=== PATIENT | male | born 1980 | race Native Hawaiian/Other Pacific Islander ===

== ENCOUNTER 2019-02-06 19:41 | Emergency (ER) | payer OTHER ==
[2019-02-06] MEDS ORDERED: BENZONATATE 100 MG CAP PO STA (20:13)
[2019-02-06] MEDS ORDERED: guaiFENesin-DM 600/30MG 1 EACH TAB.ER.12H PO STA (20:13)
[2019-02-06] MEDS ORDERED: IPRATROPIUM-ALBUTEROL 3 ML NEB INHALATION STA (20:13)
--- NOTE | 2019-02-06 20:36 | ED ---
General Adult HPI - General Chief complaint: Upper Respiratory Infection Stated complaint: Cough Time Seen by Provider: 02/06/19 19:55 Source: patient, family Mode of arrival: ambulatory Limitations: no limitations - History of Present Illness Initial comments: 38-year-old male patient presents to the emergency department today for evaluation of upper respiratory symptoms and cough. Patient is reporting nasal congestion, nasal drainage, and sore throat. States he has been coughing, reports clear sputum production. Patient states he has had a cough since November. States it seems to improve somewhat and then will get worse again. States his symptoms worsened again on Thursday. States he feels feverish but has not checked his temperature. Denies taking any medication for his symptoms. He does admit to smoking cigarettes. Several family members in the household are sick with similar symptoms. Patient denies any recent rash, abdominal pain, nausea, vomiting, diarrhea, constipation, back pain, numbness, tingling, dizziness, weakness, hematuria, dysuria, urinary urgency, urinary frequency, headache, visual changes, or any other complaints. - Related Data Previous Rx's Medication Instructions Recorded Albuterol Sulfate [Proair Hfa] 1 - 2 puff INHALATION Q6HR PRN #1 02/06/19 inhaler Benzonatate [Tessalon Perles] 100 mg PO TID #15 cap 02/06/19 guaiFENesin-DM 600/30MG [Mucinex 1 each PO Q12HR #10 tab.er.12h 02/06/19 Dm] methylPREDNISolone [Medrol Dose 4 mg PO DIRECTED #1 pack 02/06/19 Pack] Allergies Allergy/AdvReac Type Severity Reaction Status Date / Time No Known Allergies Allergy Verified 02/06/19 19:53 Review of Systems ROS Statement: Those systems with pertinent positive or pertinent negative responses have been documented in the HPI. ROS Other: All systems not noted in ROS Statement are negative. Past Medical History Past Medical History: No Reported History History of Any Multi-Drug Resistant Organisms: None Reported Past Surgical History: Cholecystectomy Past Psychological History: No Psychological Hx Reported Smoking Status: Current every day smoker Past Alcohol Use History: None Reported Past Drug Use History: None Reported General Exam Limitations: no limitations General appearance: alert, in no apparent distress, other (This is a well- developed, well-nourished adult male patient in no acute distress. Vital signs upon presentation are temperature 98.2, pulse 118, respirations 20, blood pressure 132/97, pulse ox 98% on room air.) Eye exam: Present: normal appearance, PERRL, EOMI. Absent: scleral icterus, conjunctival injection, periorbital swelling ENT exam: Present: mucous membranes moist. Absent: normal oropharynx ( Pharyngeal erythema) Respiratory exam: Present: normal lung sounds bilaterally. Absent: respiratory distress, wheezes, rales, rhonchi, stridor Cardiovascular Exam: Present: regular rate, normal rhythm, normal heart sounds. Absent: systolic murmur, diastolic murmur, rubs, gallop, clicks GI/Abdominal exam: Present: soft, normal bowel sounds. Absent: distended, tenderness, guarding, rebound, rigid Neurological exam: Present: alert, oriented X3, CN II-XII intact Psychiatric exam: Present: normal affect, normal mood Skin exam: Present: warm, dry, intact, normal color. Absent: rash Course Vital Signs 02/06/19 02/06/19 02/06/19 19:51 20:44 20:51 Temperature 98.2 F Pulse Rate 118 H 112 H 110 H Respiratory 20 18 18 Rate Blood Pressure 132/97 O2 Sat by Pulse 98 Oximetry 02/06/19 21:15 Temperature 98.6 F Pulse Rate 97 Respiratory 20 Rate Blood Pressure 148/83 O2 Sat by Pulse 99 Oximetry Medical Decision Making - Medical Decision Making 38-year-old male patient presents to the emergency department today for evaluation of cough, nasal congestion, sore throat. Patient states he has been coughing for the last 2-3 months however his symptoms worsened on Thursday. Physical examination reveals clear equal lung sounds. He is afebrile, vital signs. Chest x-ray shows no acute cardiopulmonary process. He will be treated for bronchitis with steroids, cough medication, and Pro Air inhaler. He is instructed to follow-up with his primary care physician for recheck in 1-2 days. Return parameters were discussed in detail. He verbalizes understanding and agrees with this plan. - Radiology Data Radiology results: report reviewed, image reviewed Two-view x-ray of the chest is obtained. Report was reviewed in its entirety. Impression by Dr. Bush shows normal chest. Disposition Clinical Impression: Viral upper respiratory infection, Chronic bronchitis Disposition: HOME SELF-CARE Condition: Good Instructions (If sedation given, give patient instructions): Upper Respiratory Infection (ED), Upper Respiratory Infection (DC), Chronic Bronchitis (ED) Additional Instructions: Take medications as directed. Follow-up with your primary care physician for recheck in 1-2 days. Discuss referral to pulmonology for chronic cough. Return to the emergency department immediately for any new, worsening, or concerning symptoms. Prescriptions: methylPREDNISolone [Medrol Dose Pack] 4 mg PO DIRECTED #1 pack guaiFENesin-DM 600/30MG [Mucinex Dm] 1 each PO Q12HR #10 tab.er.12h Albuterol Sulfate [Proair Hfa] 1 - 2 puff INHALATION Q6HR PRN #1 inhaler PRN Reason: Shortness Of Breath Benzonatate [Tessalon Perles] 100 mg PO TID #15 cap Is patient prescribed a controlled substance at d/c from ED?: No Referrals: None,Stated [Primary Care Provider] - 1-2 days Time of Disposition: 21:21
--- NOTE | 2019-02-06 20:50 | XR ---
EXAMINATION TYPE: XR chest 2V DATE OF EXAM: 02/06/2019 COMPARISON: NONE HISTORY: Cough TECHNIQUE: 2 views FINDINGS: Heart and mediastinum are normal. Lungs are clear. Diaphragm is normal. Bony thorax appears normal. IMPRESSION: Normal chest.
[2019-02-06 21:16] VITALS: BP 148/83; PULSE 97; RESP 20; TEMP 98.6
== END 2019-02-06 21:32 | disposition home or self-care (01) ==
LOC: EC 19:41
DX: J42 Unspecified chronic bronchitis (principal); J02.9 Acute pharyngitis, unspecified; F17.210 Nicotine dependence, cigarettes, uncomplicated
CPT/HCPCS: 71046; 94640; 99283

== ENCOUNTER 2019-02-09 23:20 | Emergency (ER) | payer OTHER ==
[2019-02-09 23:41] VITALS: TEMP 98
[2019-02-09] MEDS ORDERED: KETOROLAC 30 MG/ML 1 ML VIAL IM STA (23:52)
[2019-02-10] MEDS ORDERED: guaiFENesin-Coden 100-10MG/5ML 10 ML CUP PO ONE
--- NOTE | 2019-02-10 00:18 | XR ---
EXAMINATION TYPE: XR chest 2V DATE OF EXAM: 02/10/2019 COMPARISON: 02/06/2019 HISTORY: Cough TECHNIQUE: 2 views FINDINGS: Heart and mediastinum are normal. Lungs are clear. Diaphragm is normal. Bony thorax appears normal. IMPRESSION: Normal chest. No change.
--- NOTE | 2019-02-10 00:38 | ED ---
General Adult HPI - General Chief complaint: Chest Pain Stated complaint: Cough Time Seen by Provider: 02/09/19 23:43 Source: patient, family Mode of arrival: ambulatory Limitations: no limitations - History of Present Illness Initial comments: 38-year-old male patient presents to the emergency department today for evaluation of worsening cough and congestion. Patient states that he has been sick since Thursday with symptoms. States he was seen and evaluated here diagnosed with bronchitis. States his been taking a Medrol Dosepak and using a Pro Air inhaler. He is also taking Mucinex and ibuprofen. States the seems to be worsening rather than getting better. He has 2 children who are currently admitted for RSV and pneumonia. He denies any fever or chills. He does admit to smoking cigarettes. Patient denies any recent rash, abdominal pain, nausea, vomiting, diarrhea, constipation, back pain, numbness, tingling, dizziness, weakness, hematuria, dysuria, urinary urgency, urinary frequency, headache, visual changes, or any other complaints. - Related Data Previous Rx's Medication Instructions Recorded Albuterol Sulfate [Proair Hfa] 1 - 2 puff INHALATION Q6HR PRN #1 02/06/19 inhaler Benzonatate [Tessalon Perles] 100 mg PO TID #15 cap 02/06/19 guaiFENesin-DM 600/30MG [Mucinex 1 each PO Q12HR #10 tab.er.12h 02/06/19 Dm] methylPREDNISolone [Medrol Dose 4 mg PO DIRECTED #1 pack 02/06/19 Pack] guaiFENesin-Coden 100-10MG/5ML 10 ml PO Q4H PRN 3 Days #180 ml 02/10/19 [Robitussin AC] predniSONE 50 mg PO DAILY #5 tablet 02/10/19 Allergies Allergy/AdvReac Type Severity Reaction Status Date / Time No Known Allergies Allergy Verified 02/09/19 23:41 Review of Systems ROS Statement: Those systems with pertinent positive or pertinent negative responses have been documented in the HPI. ROS Other: All systems not noted in ROS Statement are negative. Past Medical History Past Medical History: No Reported History History of Any Multi-Drug Resistant Organisms: None Reported Past Surgical History: Cholecystectomy Past Psychological History: No Psychological Hx Reported Smoking Status: Current every day smoker Past Alcohol Use History: None Reported Past Drug Use History: None Reported General Exam Limitations: no limitations General appearance: alert, in no apparent distress, other (This is a well-devel oped, well-nourished adult male patient in no acute distress. Vital signs upon presentation are temperature 98.0F, pulse 102, respirations 24, blood pressure 130/81, pulse ox 98% on room air.) Eye exam: Present: normal appearance, PERRL, EOMI. Absent: scleral icterus, conjunctival injection, periorbital swelling ENT exam: Present: normal exam, normal oropharynx, mucous membranes moist Respiratory exam: Present: normal lung sounds bilaterally. Absent: respiratory distress, wheezes, rales, rhonchi, stridor Cardiovascular Exam: Present: regular rate, normal rhythm, normal heart sounds. Absent: systolic murmur, diastolic murmur, rubs, gallop, clicks GI/Abdominal exam: Present: soft, normal bowel sounds. Absent: distended, tenderness, guarding, rebound, rigid Neurological exam: Present: alert, oriented X3, CN II-XII intact Psychiatric exam: Present: normal affect, normal mood Skin exam: Present: warm, dry, intact, normal color. Absent: rash Course Vital Signs 02/09/19 02/10/19 23:38 01:06 Temperature 98 F Pulse Rate 102 H 96 Respiratory 24 17 Rate Blood Pressure 130/81 131/78 O2 Sat by Pulse 98 97 Oximetry Medical Decision Making - Medical Decision Making 38-year-old male patient presents to the emergency department today for evaluation of persistent cough. Patient states his been coughing for the last 6 days. He was started on Mucinex, pro-air, and Medrol Dosepak, he believes his symptoms are worsening. Physical examination reveals clear equal lung sounds. Vital signs are stable with oxygen saturation 98%. Chest x-ray was obtained and shows no acute abnormalities. Patient symptoms are consistent with acute bronchitis. He will be given a prednisone burst of 50 mg per day for 5 days. He will be given a prescription for Robitussin-AC. He is instructed to follow- up with his primary care physician for recheck in 1-2 days. Return parameters discussed in detail. He verbalizes understanding and agrees with this plan. - Radiology Data Radiology results: report reviewed, image reviewed Two-view x-ray of the chest is obtained. Report was reviewed in its entirety. Impression by Dr. Ostermann shows normal chest. No change. Disposition Clinical Impression: Acute bronchitis Disposition: HOME SELF-CARE Condition: Good Instructions (If sedation given, give patient instructions): Pleurisy (ED), Acute Bronchitis (ED) Additional Instructions: Take medication as directed. Follow up through primary care physician for recheck in 1-2 days. Return to the emergency department immediately for any new, worsening, or concerning symptoms. Prescriptions: predniSONE 50 mg PO DAILY #5 tablet guaiFENesin-Coden 100-10MG/5ML [Robitussin AC] 10 ml PO Q4H PRN 3 Days #180 ml PRN Reason: Cough Is patient prescribed a controlled substance at d/c from ED?: No Referrals: None,Stated [Primary Care Provider] - 1-2 days Time of Disposition: 00:54
[2019-02-10 01:07] VITALS: BP 131/78; PULSE 96; RESP 17
== END 2019-02-10 01:07 | disposition home or self-care (01) ==
LOC: EC 23:20
DX: J20.9 Acute bronchitis, unspecified (principal); F17.210 Nicotine dependence, cigarettes, uncomplicated
CPT/HCPCS: 71046; 99284; 96372; J1885